=== PATIENT | male | born 1990 | race Caucasian/White ===

== ENCOUNTER 2017-02-26 21:06 | Emergency (ER) | payer MEDICAID, OTHER | END 2017-02-27 01:54 | disposition home or self-care (01) | LOC: FTE 21:06 | DX: S91.332A Puncture wound without foreign body, left foot, initial encounter (principal); F17.210 Nicotine dependence, cigarettes, uncomplicated; W45.0XXA Nail entering through skin, initial encounter; Y92.9 Unspecified place or not applicable | CPT/HCPCS: 99283; Z7502 ==

== ENCOUNTER 2017-10-14 19:44 | Emergency (ER) | payer MEDICAID | END 2017-10-14 23:58 | disposition home or self-care (01) | LOC: FTE 19:44 | DX: J40 Bronchitis, not specified as acute or chronic (principal); F17.210 Nicotine dependence, cigarettes, uncomplicated | CPT/HCPCS: 71046; 93005; 99284-25 ==